=== PATIENT | male | born 2000 | race Caucasian/White ===

== ENCOUNTER → 2021-03-24 14:36 | Outpatient (CLI) | payer OTHER, SELFPAY | PROVIDERS: Visit Provider Nurse Practitioner | DX: U07.1 COVID-19 (principal) | CPT/HCPCS: C9803; U0003; U0005 ==

== ENCOUNTER 2021-08-26 01:07 | Emergency (ER) | payer BC, OTHER, SELFPAY ==
--- NOTE | 2021-08-26 00:26 | ECG_ITS ---
APPROVED REPORT Exam: Resting ECG HR:119 bpm ECG Measurements Heart Rate 119 AXES NM 174 P 53 QRSd 78 QRS 12 QT 310 T 30 QTc 381 Conclusion SINUS TACHYCARDIA ABNORMAL RHYTHM ECG UNCONFIRMED REPORT Electronically signed by : Loyd Mcdonnell MD 08/26/2021 17:57:26
[2021-08-26 01:08] VITALS: BP 133/82; PULSE 120; RESP 18; TEMP 37.3; O2SAT 100; BMI 43.0
[2021-08-26 01:15] LABS: Influenza A, PCR Not Detected (NotDetected); Influenza B, PCR Not Detected (NotDetected)
[2021-08-26 01:33] LABS: Coronavirus 19, PCR Detected (NotDetected)
[2021-08-26 01:39] LABS: Anion Gap 15.9 mEq/L (5-15); Blood Urea Nitrogen 14 mg/dl (9-20); Carbon Dioxide 26 mmol/L (22.0-30.0); Chloride 99 mmol/L (98-107); Creatinine Clearance Estimated 169 mL/min (50-200); Estimated Glomerular Filt Rate 140 ml/min (>60); GFR (African American) 169 ML/MIN (>60); Potassium 3.9 mmoL/L (3.5-5.1); Sodium 137 mmol/L (136-145)
[2021-08-26 01:40] LABS: Alanine Aminotransferase 51 U/L (12-78); Albumin Level 4.8 g/dl (3.5-5.0); Albumin/Globulin Ratio 1.6 (1.1-1.8); Alkaline Phosphatase 48 U/L (38-126); Aspartate Amino Transferase 39 U/L (17-59); Bilirubin,Total 0.7 mg/dl (0.2-1.3); Glucose 113 mg/dl (74-100); Total Protein,Serum 7.8 g/dl (6.3-8.2)
[2021-08-26 02:05] LABS: Basophils # 0.2 K/mm3 (0-0.2); Basophils % 2.1 % (0.1-2.0); Eosinophils # 0.1 K/mm3 (0.0-0.4); Eosinophils % 1.2 % (0.1-12.0); Hematocrit 44.5 % (42.0-52.0); Hemoglobin 15.5 g/dL (14.1-18.0); Lymphocytes # 0.8 K/mm3 (0.7-4.5); Mean Corpuscular HGB Conc 34.8 g/dL (31.8-35.4); Mean Corpuscular Hemoglobin 31.4 pg (27.0-31.2); Mean Platelet Volume 9.6 fl (7.4-10.4); Monocytes # 1.2 K/mm3 (0.1-1.0); Monocytes % 14.4 % (1.7-9.3); Neutrophils # 5.8 K/mm3 (1.8-7.8); Neutrophils % 72.4 % (37.0-80.0); Platelet Count 353 K/mm3 (142-424); Red Blood Count 4.95 M/mm3 (4.60-6.20); Red Cell Distribution Width 13.8 % (11.5-17.5)
--- NOTE | 2021-08-26 02:14 | [facility].EDSYNC ---
ED Disposition Clinical Impression: Vasovagal syncope, COVID-19 Disposition: Home, Self-Care Condition on Discharge: Good Instructions: DI for Syncope in Adults (Fainting), DI for COVID-19 (Suspected or Confirmed ) Additional Instructions: fluids and see pcp for follow up - Critical Care Critical Care Time: No Attestation: On 08/26/21, the high probability of a clinically significant, sudden or life threatening deterioration of the following system(s) required my full and direct attention, intervention and personal management. The time I documented below is in addition to time spent performing reported procedures but includes the following listed in this critical care notation. Medical Decision Making - Medical Records Medical records reviewed: Yes: I reviewed the patient's medical records. - Castillo Inquiry Pt receiving controlled substance: No Vital Signs: 08/26/21 01:08 Temperature 99.2 F Temperature Source Oral Pulse Rate [Left] 120 H Respiratory Rate 18 Blood Pressure [Right Arm] 133/82 Blood Pressure Mean [Right Arm] 99 02 Sat by Pulse Oximetry 100 Oxygen Delivery Method Room Air - Lab Data Lab results reviewed: Yes: I reviewed the patient's lab results. Lab Results 08/26/21 00:45: WBC 8.0, RBC 4.95, Hgb 15.5, Hct 44.5, MCV 90.0, MCH 31.4 H, MCHC 34.8, RDW 13.8, Plt Count 353, MPV 9.6, Neut % (Auto) 72.4, Lymph % (Auto) 10.0, Glenn % (Auto) 14.4 H, Eos % (Auto) 1.2, Baso % (Auto) 2.1 H, Neut # (Auto) 5.8, Lymph # (Auto) 0.8, Glenn # (Auto) 1.2 H, Eos # (Auto) 0.1, Baso # (Auto) 0.2 08/26/21 00:45: Sodium 137, Potassium 3.9, Chloride 99, Carbon Dioxide 26, Anion Gap 15.9 H, BUN 14, Creatinine 0.70, Estimated Creat Clear 169, Estimated GFR 140, Est GFR ( Amer) 169, Glucose 113 H, Calcium 10.0, Total Bilirubin 0.7, AST 39, ALT 51, Alkaline Phosphatase 48, Total Protein 7.8, Albumin 4.8, Globulin 3.0, Albumin/Globulin Ratio 1.6 08/26/21 00:45: SARS-CoV-2 (PCR) Detected A, Influenza A Untype (PCR) Not detected, Influenza Type B (PCR) Not detected Result diagrams: 08/26/21 00:45 08/26/21 00:45 Orders (Tests/Meds): ED MEDICATIONS Generic Name Dose Route Start Last Admin Trade Name Rianna PRN Reason Stop Dose Admin Sodium Chloride 1,000 mls @ 999 mls/hr 08/26/21 01:30 08/26/21 01:22 Sod Chlor 0.9% 1000ml Bag IV 08/26/21 02:30 999 mls/hr .Q1H1M NICHOLE Administration - ECG Data Tracing #1 Arrhythmias present: sinus tach Ischemic changes: non-specific ST-T wave changes Medical Decision Narrative: acute vasovagal episode and back to baseline with stale labs but has covid-19 Syncope HPI - General Chief Complaint: Syncope Stated Complaint: syncope Time Seen by Provider: 08/26/21 02:14 Mode of Arrival: Ambulatory Source of Information: Patient, Parent(s), Medical Record Limitations: No Limitations Description of Symptoms (Recalled from ER Triage Doc. by RN): pt arrived after a syncopal episode while getting a tattoo. they pt appears to have vagled down and had broke out into a sweat. lost his color and then once he arrived he had a similar response when his iv was inserted - History of Present Illness HPI narrative: passing out episode while giving tattoo and has had uri sx over the last week MD complaint: almost passed out Onset (ago): hour(s) Prodromal symptoms: lightheaded Witnessed: yes - by bystander Context: recent illness, other (getting tattoo) Current symptoms: back to baseline Treatments prior to arrival: none - Related Data Allergies Allergy/AdvReac Type Severity Reaction Status Date / Time From BACTRIM Allergy Intermediate I-RASH Uncoded 02/01/17 15:05 From OMNICEF Allergy Intermediate I-RASH Uncoded 02/01/17 15:05 PCN (PENICILLIN) Allergy Intermediate I-RASH Uncoded 02/01/17 15:05 [facility] History - Hepatitis A Screen Attestation statement:: This patient has been screened for Hepatitis A risk factors. I have reviewed the patient's pa
[2021-08-26 02:46] VITALS: BP 131/84; PULSE 100; RESP 16; TEMP 37.2; O2SAT 99
== END 2021-08-26 02:47 | disposition home or self-care (01) ==
PROVIDERS: Emergency Provider Emergency Medicine; PCP Emergency Medicine
DX: R55 Syncope and collapse (principal); U07.1 COVID-19
CPT/HCPCS: 80053; 85025; 93005; 96360; 99284; C9803; U0003; U0005